=== PATIENT | female | born 1990 | race Two or more races ===

== ENCOUNTER 2019-06-23 07:40 | Inpatient (IN) | payer OTHER ==
[2019-06-23] MEDS ORDERED: DINOPROSTONE 10 MG VAGINAL SUPPOSITORY VG ONE (08:41)
[2019-06-23] MEDS ORDERED: BUTORPHANOL TARTRATE 1 MG/ML VIAL IVPUSH PRN (08:42)
[2019-06-23] MEDS ORDERED: PROMETHAZINE HCL 25 MG/1 ML VIAL IVPB ONE (08:42)
--- NOTE | 2019-06-23 08:50 | HP ---
Past Medical History - Primary Care Physician PCP:: Danyel Lucio - Admission Chief Complaint: 40.2 weeks ,for cervidil induction History of Present Illness: 28 yo f 40.3 weeks post date had BPP 6/8 2 off for breathing , admitted for cervidil induction, risks associated with cervidil induction and ulternatives discussed with patient. , cx 2 cm 70 vx -3 mi, fhr cat 1, no contraction History Source: Patient Limitations to Obtaining History: No Limitations - Past Medical History ...: 1 ...Para: 0 ...EDC by Dates: 06/23/19 ...EDC by Sono: 06/21/19 Heme/Onc: Yes: Anemia - Past Surgical History Past Surgical History: Yes: Cystectomy (lt ovarian cystectomy at age 16) Hx Myomectomy: No Hx Transabdominal Cerclage: No - Alcohol/Substance Use Hx Alcohol Use: No - Social History Usual Living Arrangement: Yes: With Spouse History of Recent Travel: No Home Medications - Allergies Allergies/Adverse Reactions: Allergies Allergy/AdvReac Type Severity Reaction Status Date / Time No Known Drug Allergies Allergy Verified 06/23/19 08:36 fruit Allergy Severe Itching Uncoded 06/23/19 08:36 - Home Medications Home Medications: Ambulatory Orders Iron,Carbonyl [Feosol] 64 mg PO DAILY 06/23/19 Pnv No.103/Folic/Om3s/Fish Oil [ Gummies] 6 each PO DAILY 06/23/19 Review of Systems - Review of Systems Constitutional: reports: No Symptoms Eyes: reports: No Symptoms HENT: reports: No Symptoms Neck: reports: No Symptoms Cardiovascular: reports: No Symptoms Respiratory: reports: No Symptoms Gastrointestinal: reports: No Symptoms Genitourinary: reports: No Symptoms Breasts: reports: No Symptoms Reported Musculoskeletal: reports: No Symptoms Integumentary: reports: No Symptoms Neurological: reports: No Symptoms Endocrine: reports: No Symptoms Hematology/Lymphatic: reports: No Symptoms Psychiatric: reports: No Symptoms Physical Exam - Maternity Constitutional: Yes: Well Nourished, No Distress, Calm Eyes: Yes: WNL, Conjunctiva Clear, EOM Intact HENT: Yes: WNL, Atraumatic, Normocephalic Neck: Yes: WNL, Supple, Trachea Midline Cardiovascular: Yes: WNL, Regular Rate and Rhythm Breast(s): Yes: WNL - Abdominal Exam/OB Fundal Height: 40 Number of Fetuses: Single Presentation: Vertex Contractions: Yes Regularity: Irregular Intensity: Unaware Monitor Mode: External Heart Rate Location: [facility] Category: I Accelerations: Non-Uniform Decelerations: None - Vaginal Exam/OB Vaginal Bleediing: No Speculum Exam: No Dilatation (cm): 2 cm Effacement (%): 70 Amniotic Membrane Status: Intact Station: -3 - Physical Exam Musculoskeletal: Yes: WNL Extremities: Yes: WNL Edema: LLE: Trace, RLE: Trace Deep Tendon Reflex Grade: Normal +2 ...Motor Strength: WNL Psychiatric: Yes: WNL Hemorrhage Risk Assessment - Risk Factors Medium Risk Factors: Yes: None Risk Score: 1 Risk Level: Medium Risk Problem List - Problems (1) Post-term , 40-42 weeks of gestation Code(s): O48.0 - POST-TERM (2) Elective induction of labor planned Code(s): [id number] - Assessment/Plan cervidil induction iscussed , risks and benfit explained [facility] pain management
--- NOTE | 2019-06-23 08:56 | PN ---
Progress Note (short form) - Note Progress Note: cervidil inserted , fh cat 1 Problem List - Problems (1) Post-term , 40-42 weeks of gestation Code(s): O48.0 - POST-TERM (2) Elective induction of labor planned Code(s): [id number] -
[2019-06-23 09:00] VITALS: BMI 39.3
[2019-06-23 09:15] LABS: BLOOD UREA NITROGEN 4.4 mg/dL (7-18); CALCIUM 9.1 mg/dL (8.5-10.1); CREATININE 0.5 mg/dL (0.55-1.3); POTASSIUM 3.9 mmol/L (3.5-5.1)
[2019-06-23 09:20] LABS: BASO % 0.4 % (0-2.0); EOS % 0.5 % (0-4.5); HEMATOCRIT 31.4 % (32.4-45.2); HEMOGLOBIN 10.4 GM/dL (10.7-15.3); LYMPH % 31.2 % (8-40); MCH 27.7 pg (25.7-33.7); MCHC 33.2 g/dl (32.0-36.0); MEAN CELL VOLUME 83.5 fl (80-96); MEAN PLT VOLUME 8.2 fl (7.5-11.1); MONO % 5.8 % (3.8-10.2); NEUT % 62.1 % (42.8-82.8); PLATELET COUNT 209 K/MM3 (134-434); RBC 3.76 M/mm3 (3.60-5.2); RDW 14.1 % (11.6-15.6); WHITE BLOOD COUNT 5.8 K/mm3 (4.0-10.0)
[2019-06-23 09:23] LABS: INR 0.94 (0.83-1.09); PROTHROMBIN TIME (PATIENT) 11.1 SEC (9.7-13.0)
[2019-06-23 09:26] LABS: ACTIVATED PTT 30.6 SECONDS (25.2-36.5)
[2019-06-23] MEDS: DEXTROSE 5%-LACTATED RINGERS 1,000 ML IV SCH ×2 (13:30→18:20)
--- NOTE | 2019-06-23 18:01 | PN ---
Progress Note (short form) - Note Progress Note: cx 3 cm 80 vx -2 mi, fhr cat 1, contraction q 2 min, cervidil removed, pain meds discussed Problem List - Problems (1) Post-term , 40-42 weeks of gestation Code(s): O48.0 - POST-TERM (2) Elective induction of labor planned Code(s): [id number] -
[2019-06-23] MEDS ORDERED: BUTORPHANOL TARTRATE 1 MG/ML VIAL ONE ×2 (18:23)
[2019-06-23] MEDS ORDERED: PROMETHAZINE HCL 25 MG/1 ML VIAL ONE (18:23)
[2019-06-23] MEDS ORDERED: OXYTOCIN 30 UNITS in 0.9% NS 30 UNIT/500 ML INFUS.BAG IVPB ONE ×2 (21:11→21:12)
--- NOTE | 2019-06-23 21:13 | PN ---
Progress Note (short form) - Note Progress Note: cx 4 cm ,80, vx -2 arom, clear fhr cat 1, irregular contraction . advised pitocin , Problem List - Problems (1) Post-term , 40-42 weeks of gestation Code(s): O48.0 - POST-TERM (2) Elective induction of labor planned Code(s): [id number] -
[2019-06-23] MEDS: OXYTOCIN 30 UNITS in 0.9% NS 30 UNIT/500 ML INFUS.BAG IVPB SCH (21:15)
--- NOTE | 2019-06-23 21:19 | HP ---
Past Medical History - Primary Care Physician PCP:: Danyel Lucio - Admission Chief Complaint: 41 weeks, for cervidil induction History of Present Illness: 28 yo f 41 weeks , admitted for cervidil induction, , cx clp, vx -4 mi , fhr cat1 ,no contraction, risks associated with cervidil discussed , ulternative discussed History Source: Patient Limitations to Obtaining History: No Limitations - Past Medical History ...: 1 ...Para: 0 ...Term: 0 ...: 0 ...Spon : 0 ...Induced : 0 ...Multiple Gestation: 0 ...LMP: 09/16/18 ... Weeks Gestation by Dates: 40.0 ...EDC by Dates: 06/23/19 ...EDC by Sono: 06/21/19 Heme/Onc: Yes: Anemia Psych: Yes: Anxiety, Depression - Past Surgical History Past Surgical History: Yes: Cystectomy (lt ovarian cystectomy at age 16) Hx Myomectomy: No Hx Transabdominal Cerclage: No - Smoking History Smoking history: Never smoked Have you smoked in the past 12 months: No - Alcohol/Substance Use Hx Alcohol Use: No - Social History History of Recent Travel: No Home Medications - Allergies Allergies/Adverse Reactions: Allergies Allergy/AdvReac Type Severity Reaction Status Date / Time No Known Drug Allergies Allergy Verified 06/23/19 08:36 fruit Allergy Severe Itching Uncoded 06/23/19 08:36 - Home Medications Home Medications: Ambulatory Orders Iron,Carbonyl [Feosol] 64 mg PO DAILY 06/23/19 Pnv No.103/Folic/Om3s/Fish Oil [ Gummies] 6 each PO DAILY 06/23/19 Review of Systems - Review of Systems Constitutional: reports: No Symptoms Eyes: reports: No Symptoms HENT: reports: No Symptoms Neck: reports: No Symptoms Cardiovascular: reports: No Symptoms Respiratory: reports: No Symptoms Gastrointestinal: reports: No Symptoms Genitourinary: reports: No Symptoms Breasts: reports: No Symptoms Reported Musculoskeletal: reports: No Symptoms Integumentary: reports: No Symptoms Neurological: reports: No Symptoms Endocrine: reports: No Symptoms Hematology/Lymphatic: reports: No Symptoms Psychiatric: reports: No Symptoms Physical Exam - Maternity Vital Signs: Vital Signs Temperature 98.5 F 06/23/19 20:00 Pulse Rate 68 06/23/19 20:00 Respiratory Rate 20 06/23/19 20:00 Blood Pressure 125/79 06/23/19 20:00 O2 Sat by Pulse Oximetry (%) Constitutional: Yes: Well Nourished, No Distress, Calm Eyes: Yes: WNL, Conjunctiva Clear, EOM Intact HENT: Yes: WNL, Atraumatic, Normocephalic Neck: Yes: WNL, Supple, Trachea Midline Cardiovascular: Yes: WNL, Regular Rate and Rhythm Breast(s): Yes: WNL - Abdominal Exam/OB Fundal Height: 38 Number of Fetuses: Single Presentation: Vertex Contractions: No Intensity: Unaware Monitor Mode: External Heart Rate Location: [facility] Category: I Accelerations: Non-Uniform Decelerations: None - Vaginal Exam/OB Vaginal Bleediing: No Speculum Exam: No Dilatation (cm): closed Effacement (%): 0 Amniotic Membrane Status: Intact Presentation: Vertex/Position Station: -4 - Physical Exam Edema: Yes Edema: LLE: Trace, RLE: Trace Deep Tendon Reflex Grade: Normal +2 ...Motor Strength: WNL Psychiatric: Yes: WNL - Labs Lab Results: CBC, BMP 06/23/19 08:30 06/23/19 08:30 Hemorrhage Risk Assessment - Risk Factors Medium Risk Factors: Yes: None High Risk Factors: Yes: None Risk Score: 1 Risk Level: Medium Risk Problem List - Problems (1) Post-term , 40-42 weeks of gestation Code(s): O48.0 - POST-TERM (2) Elective induction of labor planned Code(s): [id number] - (3) Elective induction of labor planned Code(s): [id number] - Assessment/Plan cervidil inserted , at 625 pm cont. FHM
[2019-06-23] MEDS ORDERED: FENTANYL/BUPIVACAINE/NS/PF - PCEA - 50 ML DISP.SYRIN EP ONE (22:08)
--- NOTE | 2019-06-24 02:21 | PN ---
Progress Note (short form) - Note Progress Note: cx 4 cm 80 vx -2 with multiple deep variable to 90/min scalp electrode applied , pitocin off , iBTB variability good , if cont advised c/s Problem List - Problems (1) Post-term , 40-42 weeks of gestation Code(s): O48.0 - POST-TERM (2) Elective induction of labor planned Code(s): [id number] -
[2019-06-24] MEDS ORDERED: LIDO 2%/EPI 1:200000 PRESRVFRE (20 ML SDVIAL) ONE (02:59)
[2019-06-24] MEDS ORDERED: NALOXONE HCL 0.4 MG/ML VIAL IVPUSH PRN (03:32)
[2019-06-24] MEDS: FENTANYL/BUPIVACAINE/NS/PF - PCEA - 50 ML DISP.SYRIN EP SCH (03:45)
[2019-06-24] MEDS ORDERED: ceFAZolin SODIUM 1 GM VIAL ONE (03:52)
[2019-06-24] MEDS ORDERED: OXYTOCIN 10 UNITS/ML VIAL ONE (03:52)
[2019-06-24] MEDS ORDERED: KETOROLAC TROMETHAMINE 30 MG/1 ML VIAL ONE (03:52)
[2019-06-24] MEDS ORDERED: BENZOCAINE 20% 57 GM BOTTLE TP PRN (04:44)
[2019-06-24] MEDS ORDERED: WITCH HAZEL 50% (TUCKS) 40 PAD/JAR PAD TP PRN (04:44)
[2019-06-24] MEDS ORDERED: METHYLERGONOVINE MALEATE 0.2 MG/1 ML AMP IM PRN (04:44)
[2019-06-24] MEDS ORDERED: diphenhydrAMINE HCL 25 MG CAPSULE (FP) PO PRN (04:44)
[2019-06-24] MEDS ORDERED: BENZOCAINE 28 GM HEMORRHOIDAL OINTMENT PR PRN (04:44)
[2019-06-24] MEDS ORDERED: oxyCODONE HCL 5 MG TABLET PO PRN (04:44)
[2019-06-24] MEDS ORDERED: CITRIC ACID/SODIUM CITRATE 30 ML UNIT-DOSE CUP PO ONE (04:44)
[2019-06-24] MEDS ORDERED: OXYTOCIN 20 UNITS in 0.9% NS 20 UNIT/1,000 ML INFUS.BAG IV SCH ×2 (04:45→05:00)
[2019-06-24] MEDS: DEXTROSE 5%-LACTATED RINGERS 1,000 ML IV SCH (04:45)
[2019-06-24] MEDS ORDERED: OXYTOCIN 20 UNITS in 0.9% NS 20 UNIT/1,000 ML INFUS.BAG IV ONE (05:06)
--- NOTE | 2019-06-24 07:12 | OP ---
Operative Note - Note: Operative Date: 06/24/19 Pre-Operative Diagnosis: post date, failure to dilate, non reassuring FHR Operation: primary LST c/s Surgeon: Danyel Lucio Anesthesiologist/E [employer] DEVELOPER: Rosalio Jimenez Anesthesia: Epidural Specimens Removed: placenta Estimated Blood Loss (mls): 500 Blood Volume Replaced (mls): 0 Operative Report Dictated: Yes
[2019-06-24] MEDS: CEFAZOLIN 1 GM/D5W 1 GM/50 ML BAG IVPB SCH ×2 (09:58→17:22)
[2019-06-24] MEDS ORDERED: ENOXAPARIN NA (PORCINE) 40 MG/0.4 ML DISP.SYRIN SQ SCH (10:00)
--- NOTE | 2019-06-24 10:44 | OP ---
DATE OF OPERATION: 06/24/2019 PREOPERATIVE DIAGNOSIS: 40.3 weeks gestation, Cervidil induction, failure to dilate, and nonreassuring heart rate. POSTOPERATIVE DIAGNOSIS: 40.3 weeks gestation, Cervidil induction, failure to dilate, and nonreassuring heart rate. PROCEDURE: Primary low segment transverse section. SURGEON: Danyel Lucio MD CAR ESCORT: LORENA Barrios ANESTHESIA: Epidural. ANESTHESIOLOGIST: Dr. Jeremiah Wilde MD FINDINGS: A live baby boy. Direct occiput posterior position. Apgars 9,9. Cord around the neck x1. DESCRIPTION OF PROCEDURE: The patient was taken to the operating room under adequate epidural anesthesia. Abdomen and perineum were prepped and draped. Pfannenstiel abdominal skin incision was made. Abdominal wall was cut layer by layer until the peritoneum was exposed and incised. Upon entering the abdominal cavity, lower transverse uterine segment was identified and uterovesical fold of peritoneum established. Bladder was pushed down. A low transverse uterine incision was made. Incision was extended laterally with bandage scissors. Amniotic sac was entered. Clear fluid. Head delivered from occiput posterior position. Cord around the neck x1 reduced, and live baby boy was delivered without any difficulty. Placenta was delivered manually. Uterine cavity was cleaned of all remaining tissue. Uterine incision was closed in 2 layers, the 1st layer with 0 Biosyn continuous suture, the 2nd layer with 0 Biosyn imbricating the 1st layer. Bladder flap was closed with 0 Biosyn continuous suture. Both tubes and ovaries were checked. The left ovary was missing. Right was normal. No active bleeding was seen. All of the lap pad, sponge, and instrument counts correct. Peritoneum was closed with 0 Biosyn continuous suture. Muscles were brought together with interrupted sutures of 0 Biosyn. Fascia was closed with 0 Biosyn continuous suture, subcutaneous fat interrupted suture of 0 Biosyn, and the skin was closed with 4-0 Biosyn subcuticular continuous suture. The patient tolerated the procedure well. Left the OR in good condition. Sheila [id number]
[2019-06-24] MEDS: IBUPROFEN 800 MG/8 ML IJ IVPB PRN ×2 (11:54→20:01)
[2019-06-25] MEDS: IBUPROFEN 800 MG/8 ML IJ IVPB PRN (03:49)
[2019-06-25] MEDS ORDERED: BISACODYL 10 MG SUPP.RECT RC PRN (04:44)
[2019-06-25 08:01] LABS: BASO % 0.4 % (0-2.0); EOS % 0.5 % (0-4.5); HEMATOCRIT 26.6 % (32.4-45.2); HEMOGLOBIN 8.9 GM/dL (10.7-15.3); LYMPH % 25.7 % (8-40); MCH 28.1 pg (25.7-33.7); MCHC 33.5 g/dl (32.0-36.0); MEAN CELL VOLUME 83.8 fl (80-96); MEAN PLT VOLUME 8.4 fl (7.5-11.1); MONO % 5.2 % (3.8-10.2); NEUT % 68.2 % (42.8-82.8); PLATELET COUNT 195 K/MM3 (134-434); RBC 3.18 M/mm3 (3.60-5.2); RDW 14.5 % (11.6-15.6); WHITE BLOOD COUNT 7.1 K/mm3 (4.0-10.0)
--- NOTE | 2019-06-25 09:37 | PN ---
Progress Note (short form) - Note Progress Note: pod 1 s/p c/s doing well, voids ok, passing gas, no excess vaginal bleeding, no dizziness CBC, BMP 06/25/19 07:15 06/23/19 08:30 Last Vital Signs Temp Pulse Resp BP Pulse Ox 97.8 F 91 H 20 123/81 100 06/25/19 08:00 06/25/19 08:00 06/25/19 09:00 06/25/19 08:00 06/24/19 05:30 abdomen soft, no distension, no cva incision dry, clean no calf tenderness lochia mild impression anemia , asymptomatic advised observation repeat cbc day 3 advance diet Problem List - Problems (1) Post-term , 40-42 weeks of gestation Code(s): O48.0 - POST-TERM (2) Elective induction of labor planned Code(s): [id number] -
[2019-06-25] MEDS: ENOXAPARIN NA (PORCINE) 40 MG/0.4 ML DISP.SYRIN SQ SCH (09:38)
[2019-06-25] MEDS: SIMETHICONE 80 MG TAB.CHEW (FP) PO PRN (12:22)
[2019-06-25] MEDS: IBUPROFEN 600 MG TABLET (FP) PO PRN ×2 (12:22→18:41)
[2019-06-25] MEDS: oxyCODONE HCL 5 MG TABLET PO PRN (18:39)
[2019-06-25] MEDS: ACETAMINOPHEN 325 MG TABLET (FP) PO PRN (18:42)
[2019-06-25] MEDS: DEXTROSE 5%-LACTATED RINGERS 1,000 ML IV SCH (20:57)
[2019-06-26] MEDS: OXYTOCIN 30 UNITS in 0.9% NS 30 UNIT/500 ML INFUS.BAG IVPB SCH (01:54)
[2019-06-26] MEDS: DEXTROSE 5%-LACTATED RINGERS 1,000 ML IV SCH (01:56)
[2019-06-26] MEDS: FENTANYL/BUPIVACAINE/NS/PF - PCEA - 50 ML DISP.SYRIN EP SCH (01:56)
[2019-06-26] MEDS: SIMETHICONE 80 MG TAB.CHEW (FP) PO PRN ×3 (04:15→21:14)
[2019-06-26] MEDS: ACETAMINOPHEN 325 MG TABLET (FP) PO PRN ×3 (04:15→21:14)
[2019-06-26] MEDS: oxyCODONE HCL 5 MG TABLET PO PRN ×2 (04:16→22:56)
[2019-06-26] MEDS: IBUPROFEN 600 MG TABLET (FP) PO PRN ×3 (04:16→21:13)
[2019-06-26] MEDS: ENOXAPARIN NA (PORCINE) 40 MG/0.4 ML DISP.SYRIN SQ SCH (09:50)
--- NOTE | 2019-06-26 19:07 | PN ---
Progress Note (short form) - Note Progress Note: pod 2, ambulating. passing gas , voids ok Last Vital Signs Temp Pulse Resp BP Pulse Ox 97.8 F 98 H 20 136/90 100 06/26/19 08:43 06/26/19 08:43 06/26/19 08:43 06/26/19 08:43 06/24/19 06:30 abdomen soft, no distension, no cva uterus firm, non tender lochia mild no calf tenderness plan ambulate, cbc in am CBC, BMP 06/25/19 07:15 06/23/19 08:30 Problem List - Problems (1) Post-term , 40-42 weeks of gestation Code(s): O48.0 - POST-TERM (2) Elective induction of labor planned Code(s): [id number] -
[2019-06-26] MEDS: SENNOSIDES/DOCUSATE COMBO (SENNA PLUS) TABLET (UD) PO PRN (21:14)
[2019-06-27 06:09] LABS: BASO % 0.4 % (0-2.0); EOS % 2.2 % (0-4.5); HEMATOCRIT 25.7 % (32.4-45.2); HEMOGLOBIN 8.4 GM/dL (10.7-15.3); LYMPH % 38.2 % (8-40); MCH 27.6 pg (25.7-33.7); MCHC 32.8 g/dl (32.0-36.0); MEAN CELL VOLUME 84.2 fl (80-96); MEAN PLT VOLUME 7.9 fl (7.5-11.1); MONO % 6.3 % (3.8-10.2); NEUT % 52.9 % (42.8-82.8); PLATELET COUNT 207 K/MM3 (134-434); RBC 3.06 M/mm3 (3.60-5.2); RDW 14.4 % (11.6-15.6); WHITE BLOOD COUNT 5.4 K/mm3 (4.0-10.0)
--- NOTE | 2019-06-27 08:57 | PN ---
Progress Note (short form) - Note Progress Note: pod 3 s/p c/s , doing well, had BM , ambulating, no dizziness , no excess vaginal bleeding CBC, BMP 06/27/19 06:00 06/23/19 08:30 abdomen soft, no distension, no cva incison dry, clean uterus firm no calf tenderness no excess vaginal bleeding impression pod 3, anemia, asymptomatic , advised iron, vit plan for d/c home in am Problem List - Problems (1) Post-term , 40-42 weeks of gestation Code(s): O48.0 - POST-TERM (2) Elective induction of labor planned Code(s): [id number] -
[2019-06-27] MEDS: ENOXAPARIN NA (PORCINE) 40 MG/0.4 ML DISP.SYRIN SQ SCH (09:27)
[2019-06-27] MEDS: ACETAMINOPHEN 325 MG TABLET (FP) PO PRN ×2 (09:32→18:29)
[2019-06-27] MEDS: IBUPROFEN 600 MG TABLET (FP) PO PRN ×2 (09:33→18:28)
--- NOTE | 2019-06-28 09:11 | DS ---
Physical Exam-PAID SEARCH MANAGER Vital Signs: Vital Signs Temperature 98.1 F 06/27/19 22:00 Pulse Rate 87 06/27/19 22:00 Respiratory Rate 18 06/27/19 22:00 Blood Pressure 144/94 06/27/19 22:00 O2 Sat by Pulse Oximetry (%) 100 06/24/19 06:30 Constitutional: Yes: Well Nourished, No Distress, Calm Eyes: Yes: WNL, Conjunctiva Clear HENT: Yes: WNL, Atraumatic, Normocephalic Neck: Yes: WNL, Supple Cardiovascular: Yes: WNL, Regular Rate and Rhythm Respiratory: Yes: WNL, Regular, CTA Bilaterally Gastrointestinal: Yes: WNL, Normal Bowel Sounds, Soft External Genitalia: Yes: Normal ....Post : Yes: Uterus firm, Uterus non-tender Breast(s): Yes: WNL Musculoskeletal: Yes: WNL Extremities: Yes: WNL Edema: No Integumentary: Yes: WNL Wound/Incision: Yes: Clean/Dry, Well Approximated Neurological: Yes: WNL, Alert, Oriented ...Motor Strength: WNL Psychiatric: Yes: WNL, Alert, Oriented Labs: CBC, BMP 06/27/19 06:00 06/23/19 08:30 Delivery - Delivery Type of Anesthesia: Epidural Episiotomy/Laceration: None EBL (cc): 500 Delivery, Single - Stages of Labor Date 1st Stage Initiatied: 06/23/19 Time 1st Stage Initiated: 13:30 Date of Delivery: 06/24/19 Time of Delivery: 04:02 Time Placenta Delivered: 04:05 - Condition of Trader/Arch Cushion Press Operator Present: Yes Name: Silvana Yu Infant Gender: Male Weight: 7 lb 13 oz Position: OP Total Hours ROM (Hrs/Mins): 7h02m - 1 Minute Total Score: 9 5 Minutes Total Score: 9 - Feeding Plan Initial Plan: Elected not to breastfeed exclusively throughout hospitalization Discharge Summary Reason For Visit: INDUCTION OF LABOR Current Active Problems Elective induction of labor planned (Acute) Elective induction of labor planned (Acute) Post-term , 40-42 weeks of gestation (Acute) Condition: Good - Instructions Diet, Activity, Other Instructions: regular diet, follow up office 1 weeks, if fever, pain, heavy vaginal bleeding call Referrals: Danyel Lucio MD [Staff Physician] - Disposition: HOME - Home Medications Comprehensive Discharge Medication List: Ambulatory Orders Iron,Carbonyl [Feosol] 64 mg PO DAILY 06/23/19 Pnv No.103/Folic/Om3s/Fish Oil [ Gummies] 6 each PO DAILY 06/23/19 Ibuprofen [Motrin -] 600 mg PO QID #28 tablet 06/27/19
--- NOTE | 2019-06-28 09:46 | PN ---
Post Progress Note - Subjective Subjective: denies ZHOU, or visual changes Post Day: 4 Type of Delivery: Primary C/S Vital Signs: Vital Signs Temperature 98.1 F 06/27/19 22:00 Pulse Rate 87 06/27/19 22:00 Respiratory Rate 18 06/27/19 22:00 Blood Pressure 144/94 06/27/19 22:00 O2 Sat by Pulse Oximetry (%) 100 06/24/19 06:30 Breast Exam: Yes: Soft Uterus: Yes: Fundus Firm Incision: Yes: Dressing dry and intact Abdomen/GI: Yes: Abdomen soft, Tolerating PO Lochia: Yes: Rubra Lochia, amount: Small Extremities: Yes: Calves non-tender Perineum: Yes: Intact Activity: Ambulating - Labs Labs: CBC WBC 5.4 K/mm3 (4.0-10.0) 06/27/19 06:00 RBC 3.06 M/mm3 (3.60-5.2) L 06/27/19 06:00 Hgb 8.4 GM/dL (10.7-15.3) L 06/27/19 06:00 Hct 25.7 % (32.4-45.2) L 06/27/19 06:00 MCV 84.2 fl (80-96) 06/27/19 06:00 MCH 27.6 pg (25.7-33.7) 06/27/19 06:00 MCHC 32.8 g/dl (32.0-36.0) 06/27/19 06:00 RDW 14.4 % (11.6-15.6) 06/27/19 06:00 Plt Count 207 K/MM3 (134-434) 06/27/19 06:00 MPV 7.9 fl (7.5-11.1) 06/27/19 06:00 Absolute Neuts (auto) 2.9 K/mm3 (1.5-8.0) 06/27/19 06:00 Neutrophils % 52.9 % (42.8-82.8) D 06/27/19 06:00 Lymphocytes % 38.2 % (8-40) D 06/27/19 06:00 Monocytes % 6.3 % (3.8-10.2) 06/27/19 06:00 Eosinophils % 2.2 % (0-4.5) D 06/27/19 06:00 Basophils % 0.4 % (0-2.0) 06/27/19 06:00 Nucleated RBC % 0 % (0-0) 06/27/19 06:00 Assessment/Plan 28yo P 1 s/p Primary c/section noted to be breast feeding exclusively and not taking rest Has elevated BP 140/90, asymptomatic will monitor BPs and consider starting on antihypertensive SW to assess for VNS to come to patient home for BP check All PP preeclampsia precautions given
[2019-06-28] MEDS: ENOXAPARIN NA (PORCINE) 40 MG/0.4 ML DISP.SYRIN SQ SCH (11:04)
[2019-06-28] MEDS ORDERED: LABETALOL HCL 200 MG TABLET (FP) PO SCH (15:15)
[2019-06-28] MEDS: LABETALOL HCL 200 MG TABLET (FP) PO SCH (22:20)
[2019-06-28] MEDS: SIMETHICONE 80 MG TAB.CHEW (FP) PO PRN (22:20)
[2019-06-28] MEDS: ACETAMINOPHEN 325 MG TABLET (FP) PO PRN (22:20)
[2019-06-28] MEDS: IBUPROFEN 600 MG TABLET (FP) PO PRN (22:21)
[2019-06-29] MEDS: IBUPROFEN 600 MG TABLET (FP) PO PRN ×2 (05:28→19:31)
[2019-06-29] MEDS: ACETAMINOPHEN 325 MG TABLET (FP) PO PRN ×2 (05:28→19:31)
[2019-06-29] MEDS: LABETALOL HCL 200 MG TABLET (FP) PO SCH (05:28)
[2019-06-29] MEDS: SENNOSIDES/DOCUSATE COMBO (SENNA PLUS) TABLET (UD) PO PRN (05:31)
[2019-06-29] MEDS: ENOXAPARIN NA (PORCINE) 40 MG/0.4 ML DISP.SYRIN SQ SCH (10:08)
[2019-06-29 11:40] LABS: BASO % 0.6 % (0-2.0); EOS % 0.9 % (0-4.5); HEMATOCRIT 27.3 % (32.4-45.2); HEMOGLOBIN 9.1 GM/dL (10.7-15.3); LYMPH % 32.3 % (8-40); MCH 28.2 pg (25.7-33.7); MCHC 33.5 g/dl (32.0-36.0); MEAN CELL VOLUME 84.4 fl (80-96); MEAN PLT VOLUME 7.4 fl (7.5-11.1); NEUT % 61.2 % (42.8-82.8); PLATELET COUNT 295 K/MM3 (134-434); RBC 3.23 M/mm3 (3.60-5.2); RDW 14.1 % (11.6-15.6); WHITE BLOOD COUNT 5.4 K/mm3 (4.0-10.0)
[2019-06-29 12:05] LABS: ALBUMIN 2.8 g/dl (3.4-5.0); BILIRUBIN,TOTAL 0.3 mg/dL (0.2-1); BLOOD UREA NITROGEN 11.3 mg/dL (7-18); CALCIUM 8.8 mg/dL (8.5-10.1); CREATININE 0.6 mg/dL (0.55-1.3); MAGNESIUM 2.1 mg/dL (1.8-2.4); TOT PROT 6.1 g/dl (6.4-8.2)
[2019-06-29 13:47] LABS: EPI CELLS 8.8 /HPF (0-5/HPF); HYALINE CASTS 6 /lpf (0-8); PH,URINE 6.5 (5.0-8.0); URINE APPEARANCE CLEAR; URINE BACTERIA 14.1 /hpf (NEGATIVE); URINE BILIRUBIN NEGATIVE (NEGATIVE); URINE COLOR YELLOW; URINE GLUCOSE (UA) NEGATIVE (NEGATIVE); URINE KETONE NEGATIVE (NEGATIVE); URINE LEUK ESTERASE 1+ (NEGATIVE); URINE NITRITE NEGATIVE (NEGATIVE); URINE PROTEIN NEGATIVE (NEGATIVE); URINE RBC 1 /hpf (0-4); URINE UROBILINOGEN 0.2 mg/dL (0.2-1.0); URINE WBC 10 /hpf (0-5)
--- NOTE | 2019-06-29 13:49 | CONSULT ---
Consult - text type - Consultation Consultation Note: Renal consult for hypertension This is a 28 year old woman with no significant medical history who presented at 36 week gestation in labor now s/p with elevated BP. Pt denies having elevated BP during the course of her and denies having any proteinuria. Seen and examined at the bedside. Awake and alert, offers no acute complaints. Denies any SOB, chest pain, abdominal pain, fever, chills, N/V/D. Denies any headache, blurry vision. PMHx: as above Allergies: NKDA Family Hx: No first degree relatives with hypertension Social Hx: No T/A/D ROS: as per HPI, all other pertinent ros negative Home Medications Medication Instructions Recorded Iron,Carbonyl [Feosol] 64 mg PO DAILY 06/23/19 Pnv No.103/Folic/Om3s/Fish Oil 6 each PO DAILY 06/23/19 [ Gummies] Ibuprofen [Motrin -] 600 mg PO QID #28 tablet 06/27/19 Oxycodone HCl 5 mg PO Q4HWA #20 tablet MDD 8 06/28/19 Vital Signs Temperature 98.1 F 06/29/19 05:23 Pulse Rate 80 06/29/19 05:23 Respiratory Rate 20 06/29/19 05:23 Blood Pressure 134/95 06/29/19 05:23 O2 Sat by Pulse Oximetry (%) 100 06/24/19 06:30 NAD no significant edema CBC, BMP 06/29/19 11:30 06/29/19 11:30 Laboratory Tests 06/29/19 06/29/19 06/29/19 11:30 12:00 12:00 Calcium 8.8 Phosphorus 4.0 Magnesium 2.1 Urine Protein Negative Urine Blood 3+ H Ur Leukocyte Esterase 1+ H Protein/Creatinin Ratio Pending Current Medications Acetaminophen (Tylenol -) 650 mg PO Q4H PRN PRN Reason: PAIN LEVEL 4 - 6 Last Admin: 06/29/19 05:28 Dose: 650 mg Benzocaine (Americaine 20% [place] -) 1 spray TP PRN PRN PRN Reason: Pain - Topical Benzocaine (Americaine Ointment -) 1 applic MT PRN PRN PRN Reason: Pain - Topical Bisacodyl (Dulcolax Suppository -) 10 mg RC PRN PRN PRN Reason: CONSTIPATION Diphenhydramine HCl (Benadryl -) 25 mg PO Q8H PRN PRN Reason: FOR ITCHING Last Admin: 06/24/19 10:38 Dose: 25 mg Enoxaparin Sodium (Lovenox -) 40 mg SQ DAILY DOUGLAS Last Admin: 06/29/19 10:08 Dose: 40 mg Ibuprofen (Motrin -) 600 mg PO Q4H PRN PRN Reason: PAIN LEVEL 1 - 3 Last Admin: 06/29/19 05:28 Dose: 600 mg Labetalol HCl (Normodyne -) 200 mg PO Q6H PRN PRN Reason: HYPERTENSION Methylergonovine Maleate (Methergine Injection -) 0.2 mg IM Q4H PRN PRN Reason: EXCESSIVE BLEEDING Naloxone HCl (Narcan -) 0.4 mg IVPUSH PRN PRN PRN Reason: Sedation Senna/Docusate Sodium (Pericolace -) 2 tablet PO HS PRN PRN Reason: CONSTIPATION Last Admin: 06/29/19 05:31 Dose: 2 tablet Simethicone (Mylicon -) 80 mg PO Q4H PRN PRN Reason: GAS Last Admin: 06/28/19 22:20 Dose: 80 mg Witch Hortensia/Glycerin (Tucks Pads -) 1 pad TP PRN PRN PRN Reason: Pain - Topical 28 year old woman with no significant medical history who presented at 36 week gestation in labor now s/p with elevated BP. 1. hypertension r/o preeclampia va. PIH vs. HELLP 2. s/p 3. Hematuria BP is improved today from levels seen yesterday. Will change Labetalol to PRN Q6h and monitor BP trend. IF BP remains above goal this evening can consider change to Nifedpine ER for ease of dosage administration. Goal BP < 140/90. Low salt diet, avoid excessive NSAID use. Hematuria likely transient due to immediate post operative changes. Repeat UA in 1-2 weeks Thank you Basim Olson DO
[2019-06-29 13:54] LABS: RATIO URIN PROTEIN/URIN CREAT 0.31 MG/DL
[2019-06-29] MEDS ORDERED: LABETALOL HCL 100 MG TABLET (FP) PO SCH (14:00)
--- NOTE | 2019-06-29 17:56 | PATH ---
Surgical Pathology Report Patient Name: ELICIA OSPINA Med. Rec. #: [id number] /Age/Gender: 1990 (Age: 28) / F Account: [id number] Location: [facility] OBS/DOCUMENT REVIEW ATTORNEY Taken: 06/24/2019 Received: 06/24/2019 Reported: 06/29/2019 Physicians: Danyel Lucio M.D. Specimen(s) Received PLACENTA Clinical History Nonreassuring FHR Final Diagnosis PLACENTA, SECTION: 584 G THIRD TRIMESTER PLACENTA WITH TRIVASCULAR UMBILICAL CORD, UNREMARKABLE PLACENTAL MEMBRANES, AND FOCAL INTRAPARENCHYMAL INFARCT (< 2% OF PLACENTAL SURFACE). Electronically Signed Linda Constantino M.D. Gross Description The specimen is received fresh labeled placenta and is a 584 gram, 20 x 19 x 2 cm. placenta with attached membranes and umbilical cord. The attached membranes are thin and translucent and insert marginally. The umbilical cord measures 30 cm. in length and averages 1.5 cm. in diameter. The cord inserts eccentrically, 6 cm. to the nearest margin. No true knots or strictures are identified. Cut surface of the umbilical cord reveals 3 vessels. The surface is durán-blue with minimal fibrin deposition and appropriate caliber vessels. The maternal surface is red-brown with focal defects. Sectioning reveals a corea lesion measuring 3 x 2 x 2 cm. Remainder of the parenchyma is red-brown and spongy. Basic Combatant Swimmer sections are submitted in three cassettes as follows: 1- membrane rolls and umbilical cord; 2-3- full thickness sections of placenta; 4- corea lesion. MLSZ/06/24/2019 sanalanna/06/24/2019
--- NOTE | 2019-06-29 18:41 | PN ---
Post Progress Note - Subjective Subjective: Pt w/o complaints. BP is elevated. Post Day: 5 Type of Delivery: Primary C/S Vital Signs: Vital Signs Temperature 98.7 F 06/29/19 18:18 Pulse Rate 82 06/29/19 18:18 Respiratory Rate 20 06/29/19 18:18 Blood Pressure 136/72 06/29/19 18:18 O2 Sat by Pulse Oximetry (%) 100 06/24/19 06:30 Breast Exam: Yes: Soft Uterus: Yes: Fundus Firm, Fundus below umbilicus Incision: Yes: Sutures intact Abdomen/GI: Yes: Abdomen soft, Passing flatus, Tolerating PO Lochia: Yes: Rubra Lochia, amount: Small Extremities: Yes: Calves non-tender Perineum: Yes: Intact Activity: Ambulating - Labs Labs: CBC WBC 5.4 K/mm3 (4.0-10.0) 06/29/19 11:30 RBC 3.23 M/mm3 (3.60-5.2) L 06/29/19 11:30 Hgb 9.1 GM/dL (10.7-15.3) L 06/29/19 11:30 Hct 27.3 % (32.4-45.2) L 06/29/19 11:30 MCV 84.4 fl (80-96) 06/29/19 11:30 MCH 28.2 pg (25.7-33.7) 06/29/19 11:30 MCHC 33.5 g/dl (32.0-36.0) 06/29/19 11:30 RDW 14.1 % (11.6-15.6) 06/29/19 11:30 Plt Count 295 K/MM3 (134-434) D 06/29/19 11:30 MPV 7.4 fl (7.5-11.1) L 06/29/19 11:30 Absolute Neuts (auto) 3.3 K/mm3 (1.5-8.0) 06/29/19 11:30 Neutrophils % 61.2 % (42.8-82.8) 06/29/19 11:30 Lymphocytes % 32.3 % (8-40) 06/29/19 11:30 Monocytes % 5.0 % (3.8-10.2) 06/29/19 11:30 Eosinophils % 0.9 % (0-4.5) 06/29/19 11:30 Basophils % 0.6 % (0-2.0) 06/29/19 11:30 Nucleated RBC % 0 % (0-0) 06/29/19 11:30 Assessment/Plan POD # 5 s/p primary LT C/S Pt is stable and afebrile. She is asymptomatic for anemia Advised to ambulate. Tolerating diet. BP was high but now improved. Dr. Olson's consult appreciated. Anticipate d/c home tomorrow, if stable BP.
[2019-06-29] MEDS: SIMETHICONE 80 MG TAB.CHEW (FP) PO PRN (19:29)
[2019-06-29] MEDS: LABETALOL HCL 200 MG TABLET (FP) PO PRN (20:58)
[2019-06-30] MEDS: LABETALOL HCL 200 MG TABLET (FP) PO PRN (05:55)
--- NOTE | 2019-06-30 06:17 | PN ---
Progress Note (short form) - Note Progress Note: pod 6, s/p c/s, PP HTN , doing well, no headache or blurred vision, abdomen soft, no distension, no cva , no RUQ tenderness BS are present , incision dry, clean no calf tenderness CBC, BMP 06/29/19 11:30 06/29/19 11:30 Last Vital Signs Temp Pulse Resp BP Pulse Ox 98.4 F 88 18 139/91 100 06/29/19 20:57 06/30/19 05:50 06/30/19 05:50 06/30/19 05:50 06/24/19 06:30 plan ambulate , medical evaluations of BP if BP ok, d/c home today , follow up office 1 week Problem List - Problems (1) Post-term , 40-42 weeks of gestation Code(s): O48.0 - POST-TERM (2) Elective induction of labor planned Code(s): [id number] -
[2019-06-30] MEDS: ENOXAPARIN NA (PORCINE) 40 MG/0.4 ML DISP.SYRIN SQ SCH (10:04)
[2019-06-30 12:23] VITALS: BP 132/77; PULSE 67; TEMP 98.1
--- NOTE | 2019-06-30 15:45 | PN ---
Progress Note (short form) - Note Progress Note: Renal follow up for hypertension Seen and examined at the bedside awake and alert no acute complaints no dizziness, ZHOU, blurry vision Vital Signs Temperature 98.1 F 06/30/19 12:20 Pulse Rate 67 06/30/19 12:20 Respiratory Rate 20 06/30/19 12:20 Blood Pressure 132/77 06/30/19 12:20 O2 Sat by Pulse Oximetry (%) 100 06/24/19 06:30 NAD awake and alert no LE edema CBC, BMP 06/29/19 11:30 06/29/19 11:30 Laboratory Tests 06/29/19 12:00 Protein/Creatinin Ratio 0.310 28 year old woman with no significant medical history who presented at 36 week gestation in labor now s/p with elevated BP. 1. hypertension r/o preeclampia va. PIH vs. HELLP 2. s/p 3. Hematuria urine studies consistent with preeclampsia continue Labetalol 200mg BID as an outpatient, Rx called into the pharmacy to follow in our office next week for BP monitoring advised to obtain a automated BP cuff at home and monitor pressures twice a week Advised to maintain a low salt deit reviewed symptoms of hypotension with the patient office contact information to be provided with the discharge paper work stable for discharge Thank you Basim Olson DO
== END 2019-06-30 14:30 | disposition home or self-care (01) | DRG 787 ==
LOC: JLDR 07:40 → J3W 06-24 07:48
PROVIDERS: ADMIT Obstetrics & Gynecology; ATTEND Obstetrics & Gynecology
PROC: 3E0P7VZ Introduction of Hormone into Female Reproductive, Via Natural or Artificial Opening (ICD-10-PCS; 2019-06-23)
PROC: 10D00Z1 Extraction of Products of Conception, Low, Open Approach (ICD-10-PCS; principal; 2019-06-24)
DX: O62.0 Primary inadequate contractions (principal); O16.3 Unspecified maternal hypertension, third trimester; O76 Abnormality in fetal heart rate and rhythm complicating labor and delivery; O48.0 Post-term pregnancy; Z3A.40 40 weeks gestation of pregnancy; Z37.0 Single live birth; O26.893 Other specified pregnancy related conditions, third trimester; R31.9 Hematuria, unspecified
CPT/HCPCS: 36415; 36600; 80048; 80053; 81003; 82436; 82565; 82570; 82803; 83735; 84100; 84133; 84156; 84300; 85025; 85610; 85730; 86593; 86850; 86900; 86901; 88307-TC